=== PATIENT | female | born 1950 | race American Indian/Alaskan Native ===

== ENCOUNTER 2017-02-22 07:59 | Outpatient (CLI) | payer OTHER ==
--- NOTE | 2017-02-22 09:09 | XRay Report ---
Right shoulder 2 views: History: Pain in shoulder. Findings: Arthritic changes of the a.c. joint and inferior aspect of glenohumeral joint. Sclerosis with irregularity noted at the greater tuberosity. No soft tissue calcification. Impression: Arthritic changes as detailed above. Changes in the greater tuberosity may be related to chronic pain.
== END 2017-02-22 08:00 | disposition home or self-care (01) ==
LOC: XRAY 07:59
PROVIDERS: ATTEND Internal Medicine
DX: M19.011 Primary osteoarthritis, right shoulder (principal)

== ENCOUNTER 2018-11-17 07:05 | Day surgery (SDC) | payer MEDICARE ==
[2018-11-17] MEDS ORDERED: ECOTRIN PO ONE (08:00)
[2018-11-17] MEDS ORDERED: NACL 0.9% 500 ML 500 ML IV SCH (08:00)
[2018-11-17 08:18] LABS: Basophils # (Auto) 0.1 K/mm3 (0.0-0.1); Basophils % (Auto) 1.2 % (0.0-1.8); Eosinophils # (Auto) 0.1 K/mm3 (0.0-0.4); Hematocrit 38.9 % (30.3-42.9); Hemoglobin 12.6 gm/dl (10.1-14.3); Lymphocytes # (Auto) 3.3 K/mm3 (1.2-5.4); Lymphocytes % (Auto) 26.9 % (13.4-35.0); Mean Corpuscular HGB Conc 32 % (30-34); Mean Corpuscular Volume 80 fl (79-97); Monocytes % (Auto) 8.3 % (0.0-7.3); Red Blood Count 4.88 M/mm3 (3.65-5.03); Red Cell Distribution Width 16.2 % (13.2-15.2)
[2018-11-17 08:26] LABS: INR 1.01 (0.87-1.13)
[2018-11-17 08:27] LABS: Platelet Count 245 K/mm3 (140-440)
[2018-11-17 08:54] LABS: BUN/Creatinine Ratio 18; Blood Urea Nitrogen 16 mg/dL (7-17); Calcium 8.4 mg/dL (8.4-10.2); Hemolysis Index 1
[2018-11-17] MEDS ORDERED: DUONEB *Not for PRN Use IH NR (09:12)
[2018-11-17] MEDS ORDERED: DUONEB *Not for PRN Use IH ONE (09:31)
[2018-11-17] MEDS ORDERED: HEPARIN 10,000 UNITS/10 ML ONE (09:35)
[2018-11-17] MEDS ORDERED: CALAN ONE (09:35)
[2018-11-17] MEDS ORDERED: HEPARIN/NS 5000 UNIT/500ML(CATH LAB) 1,000 ML IR ONE (09:35)
[2018-11-17] MEDS ORDERED: NITROGLYCERIN SYRINGE 3 ML ONE (09:36)
[2018-11-17] MEDS ORDERED: XYLOCAINE 2% INFILTRATI ONE ×2 (09:36→11:44)
[2018-11-17] MEDS ORDERED: PHENERGAN/CODEINE 6.25-10 MG/5ML PO ONE (10:00)
[2018-11-17] MEDS ORDERED: SUBLIMAZE ONE (10:22)
[2018-11-17] MEDS ORDERED: VERSED ONE (10:22)
--- NOTE | 2018-11-17 11:15 | Cardiac Catherization Report ---
CARDIAC CATHETERIZATION REFERRING PHYSICIAN: Ramon Capps MD INDICATIONS FOR PROCEDURE: The patient is a pleasant 68-year-old -[place] female with multiple risk factors including CAD, previous PCI, hypertension, hyperlipidemia, diabetes, obesity, sleep apnea who presents with recurrent chest pain, recent hospitalization. She is referred for a heart catheterization. Risks, benefits, and potential alternatives were explained in length prior to obtaining informed consent. PROCEDURE IN DETAIL: The patient was brought to the optical laboratory technician in a postabsorptive state, prepped and draped in sterile fashion. Buck's test of the right hand was normal. A 2 mL of 2% lidocaine used to anesthetize the right wrist. A standard 6-Micronesian hydrophilic sheath used to cannulate the right radial artery via modified Seldinger technique. All exchanges performed to exchange a J-tip guidewire. JL3.5 catheter used to engage the left main. No dampening or ventricularization. Cineangiography performed in multiple projections. JR4 catheter was used to cross the aortic valve under fluoroscopic guidance, left ventriculography performed in 30 [place] and 30 [place] projections via hand injections, catheter flushed. Manual pullback performed with continuous pressure monitoring. Catheter used to engage the right coronary. No dampening or ventricularization. Cineangiography performed in multiple projections. Due to recurrent chest pain, nonobstructive coronary artery disease and hypertension, root aortography was performed in the [place] projection with a power injector and pigtail catheter. Next, catheter removed from the body of wire, sheath removed. Manual pressure used to achieve hemostasis. I directly supervised the administration of moderate sedation with fentanyl and Versed from 10:27-10:55 a.m. There were no complications identified. DATA: The patient remained in normal sinus rhythm throughout the procedure. Aortic pressure is 120/60, LV pressure is 120, LVEDP of 12 mmHg. Left ventriculography reveals normal systolic performance with estimated ejection fraction of 55-60%. No evidence of aortic stenosis. CORONARY ANATOMY: This is a right dominant system. Right coronary is a moderate sized vessel, courses AV groove, tortuous, scattered luminal irregularities, maximal narrowing approximately 20% proximally, but no obstructive disease identified. Left main is without significant disease, bifurcates left anterior descending and left circumflex. Left circumflex is a moderate sized vessel, courses AV groove. Patent stent in the mid left circumflex, no significant in-stent restenosis. No other significant disease noted in that vessel. LAD is a moderate sized vessel, courses anterior intergroove, wraps around the apex, scattered luminal irregularities, but no significant disease noted in the LAD or diagonal system. Root aortography reveals normal contour, no evidence of dissection, penetrating aortic ulcer. Normal great vessel anatomy. Mild calcification of aortic root, no aortic insufficiency. CONCLUSIONS: 1. No angiographic evidence of obstructive coronary artery disease identified in this right dominant system. A. Patent stent in the mid left circumflex. B. Minimal nonobstructive disease in the right coronary. 2. Normal left ventricular systolic performance, estimated ejection fraction of 55-60%. 3. No evidence of aortic stenosis. 4. Normal LVEDP. 5. Root aortography shows mild calcification without evidence of dissection, penetrating aortic ulcer, or aortic insufficiency. Recommended risk factor modification, diet and lifestyle modification. Continue aggressive and optimal medical therapy, standard radial care. Follow up with me in 1-2 weeks. Results of procedure were explained in length to the patient and family at length. All questions and concerns were addressed. JOB# [id number] SBPravin/GRETA
--- NOTE | 2018-11-17 14:26 | Short Stay Summary ---
Short Stay Documentation Date of service: 11/17/18 - History H&P: obtained from office - Allergies and Medications Current Medications: Allergies succinylcholine Allergy (Severe, Verified 11/17/18 07:43) Anaphylaxis acetaminophen [From Percocet] Allergy (Intermediate, Verified 11/17/18 08:02) Itching oxycodone [From Percocet] Allergy (Intermediate, Verified 11/17/18 08:02) Itching Home Medications Medication Instructions Recorded Confirmed Last Taken Type Aspirin 1 tab PO DAILY 03/26/16 11/17/18 11/17/18 History 1 tab AtorvaSTATin [Lipitor] 1 tab PO QHS 03/26/16 11/17/18 11/16/18 History 1 tab Bumetanide 1 tab PO DAILY 03/26/16 11/17/18 03/25/16 History HYDROcodone/APAP 5-325 [Nicholson 1 tab PO PRN PRN 03/26/16 11/17/18 03/21/16 History 5-325 mg TAB] Lisinopril 2.5 tab PO DAILY 03/26/16 11/17/18 11/16/18 History 1/2 tab Metformin HCl [Metformin HCl ER] 1 tab PO DAILY 03/26/16 11/17/18 11/15/18 History 1 tab Omeprazole Magnesium [PriLOSEC Otc] 1 tab PO DAILY 03/26/16 11/17/18 11/16/18 History 1 tab Zolpidem [Ambien] 1 tab PO QHS 03/26/16 11/17/18 11/16/18 History 1tab Alendronate Sodium [Fosamax] 70 mg PO QWEEK 11/17/18 11/17/18 11/16/18 History 1 tab Cholecalciferol (Vitamin D3) [Baby 15 ml PO DAILY 11/17/18 11/17/18 11/16/18 History Vitamin D3] 1 tab ISOSORBIDE MONOnitrate [Imdur ER] 30 mg PO DAILY 11/17/18 11/17/18 11/16/18 History 1 tab Levothyroxine [Synthroid] 50 mcg PO DAILY 11/17/18 11/17/18 11/16/18 History 1 tab Loratadine [Allergy Relief] 10 mg PO DAILY 11/17/18 11/17/18 11/16/18 History 1 tab Olmesartan-Hctz 40-25 mg Tab 25 - 40 mg PO QDAY 11/17/18 11/17/18 11/16/18 History 1 tab Vitamin E Acetate [Vitamin E] 1,000 unit PO DAILY 11/17/18 11/17/18 11/16/18 History 1tab amLODIPine [Norvasc] 5 mg PO DAILY 11/17/18 11/17/18 11/16/18 History 1 tab Active Medications Sodium Chloride (Nacl 0.9% 500 Ml) 500 mls @ 50 mls/hr IV DIRECT JOSEPH Stop: 11/17/18 17:59 Last Admin: 11/17/18 10:25 Dose: 100 mls Documented by: - Brief post op/procedure progress note Date of procedure: 11/17/18 Pre-op diagnosis: cp Post-op diagnosis: same Procedure: LHC - see dictated cath report Anesthesia: local Estimated blood loss: none Condition: stable - Disposition Condition at discharge: Good Disposition: [id number] TO HOME OR SELFCARE - Discharge Diagnoses (1) CAD (coronary artery disease) Status: Chronic (2) Stented coronary artery Status: Chronic (3) HTN (hypertension) Status: Chronic (4) Hyperlipidemia Status: Chronic (5) Diabetes Status: Chronic (6) MATEO (obstructive sleep apnea) Status: Chronic (7) Tobacco use Status: Chronic Short Stay Discharge Plan Activity: advance as tolerated Diet: low fat, low cholesterol, low salt, diabetic Wound: open to air, keep clean and dry, per your surgeon's advice Additional Instructions: follow up with Primary Medical Doctor in 1 week, return to Emergency Room for medical emergencies. Follow up with: SEB TOLENTINO MD [Primary Care Provider] - 7 Days MARIFER FRANK MD [Staff Physician] - 7 Days Forms: CardCath PCI D/C Instructions
[2018-11-17 14:36] VITALS: BP 121/84
== END 2018-11-17 14:44 | disposition home or self-care (01) ==
LOC: CATHLABREC 07:05
PROVIDERS: ATTEND Internal Medicine
DX: I25.118 Atherosclerotic heart disease of native coronary artery with other forms of angina pectoris (principal); I10 Essential (primary) hypertension; E78.5 Hyperlipidemia, unspecified; E66.9 Obesity, unspecified; M19.90 Unspecified osteoarthritis, unspecified site; E11.649 Type 2 diabetes mellitus with hypoglycemia without coma; G47.33 Obstructive sleep apnea (adult) (pediatric); E78.00 Pure hypercholesterolemia, unspecified; K21.9 Gastro-esophageal reflux disease without esophagitis; Z90.710 Acquired absence of both cervix and uterus; Z72.89 Other problems related to lifestyle; Z98.890 Other specified postprocedural states; Z79.899 Other long term (current) drug therapy; Z79.82 Long term (current) use of aspirin; Z87.891 Personal history of nicotine dependence; Z95.5 Presence of coronary angioplasty implant and graft; Z68.31 Body mass index [BMI] 31.0-31.9, adult; Z98.49 Cataract extraction status, unspecified eye; Z84.1 Family history of disorders of kidney and ureter; Z82.61 Family history of arthritis; Z83.49 Family history of other endocrine, nutritional and metabolic diseases; Z82.49 Family history of ischemic heart disease and other diseases of the circulatory system; Z88.8 Allergy status to other drugs, medicaments and biological substances; Z86.73 Personal history of transient ischemic attack (TIA), and cerebral infarction without residual deficits
CPT/HCPCS: 36415; 80048; 85025; 85610; 85730; 93005; 93010; 93458; 93567; 94640; 99156; 99157; C1894; J1644; J2250; J3010; J7040; Q9967